=== PATIENT | female | born 2005 | race Caucasian/White ===

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

== ENCOUNTER 2023-01-11 14:01 | Emergency (ER) | payer BC ==
--- NOTE | 2023-01-11 16:08 | ED ---
URI HPI - General Chief Complaint: Upper Respiratory Infection Stated Complaint: fever Time Seen by Provider: 01/11/23 15:47 Source: patient, RN notes reviewed Mode of arrival: ambulatory Limitations: no limitations - History of Present Illness Initial Comments: This is a 17-year-old female who presents to the emergency department for coughing, congestion, and a sore throat starting yesterday. Reports associated body aches and fevers. Denies any known sick contacts. Denies any history of asthma or other respiratory illnesses and she is not experiencing any chest pain or difficulty breathing. Denies any dyspnea, chest pain, palpitations, abdominal pain, nausea, vomiting, diarrhea, back pain, or headaches. MD Complaint: cough, sore throat, nasal congestion Onset/Timin -: days(s) - Related Data Home Medications Medication Instructions Recorded Confirmed Ferrous Sulfate [Iron] 325 mg PO DAILY 06/01/21 06/01/21 Ibuprofen [Motrin Ib] 800 mg PO Q8H PRN 06/01/21 06/01/21 norethindrone-e.estradioL-iron 1 tab PO DAILY 06/01/21 06/01/21 [Junel Fe 1.5 mg-30 Mcg Tablet] Previous Rx's Medication Instructions Recorded Nirmatrelvir/Ritonavir [Paxlovid 1 pack PO BID 5 Days #30 tab 01/11/23 300-100 mg Pack (Eua)] Promethazine/Dextromethorphan 5 ml PO Q4-6H PRN #473 ml 01/11/23 [Promethazine-Dm Syrup] predniSONE 50 mg PO DAILY 5 Days #5 tab 01/11/23 Allergies Allergy/AdvReac Type Severity Reaction Status Date / Time No Known Allergies Allergy Verified 01/11/23 14:16 Review of Systems ROS Statement: Those systems with pertinent positive or pertinent negative responses have been documented in the HPI. ROS Other: All systems not noted in ROS Statement are negative. Past Medical History Past Medical History: No Reported History Additional Past Medical History / Comment(s): anemia, hypoglycemia History of Any Multi-Drug Resistant Organisms: None Reported Past Surgical History: Orthopedic Surgery Additional Past Surgical History / Comment(s): dental work, right arm surgery after fx, rt ankle Past Psychological History: No Psychological Hx Reported Smoking Status: Never smoker Past Alcohol Use History: None Reported Past Drug Use History: None Reported General Exam Limitations: no limitations General appearance: alert, in no apparent distress Head exam: Present: atraumatic, normocephalic, normal inspection Respiratory exam: Present: normal lung sounds bilaterally. Absent: respiratory distress, wheezes, rales, rhonchi, stridor Cardiovascular Exam: Present: regular rate, normal rhythm, normal heart sounds. Absent: systolic murmur, diastolic murmur, rubs, gallop, clicks Neurological exam: Present: alert, oriented X3, CN II-XII intact Psychiatric exam: Present: normal affect, normal mood Skin exam: Present: warm, dry, intact, normal color. Absent: rash Course Vital Signs 01/11/23 01/11/23 14:10 16:15 Temperature 99.6 F 100 F H Pulse Rate 106 H 102 H Respiratory 20 18 Rate Blood Pressure 106/75 102/76 O2 Sat by Pulse 95 96 Oximetry Medical Decision Making - Medical Decision Making This is a 17-year-old female who presents to the emergency department for coughing, congestion, and a sore throat. Was pt. sent in by a medical professional or institution? @ -No Did you speak to anyone other than the patient for history? @ -No Did you review nursing and triage notes? @ -Yes, and I agree, it is accurate with regards to the patient's symptoms. Were old charts reviewed? @ -No Differential Diagnosis? @ -Differential Sore Throat: Strep pharyngitis, herpes zoster, COVID, influenza, GERD, allergic rhinitis, mononucleosis, this is not meant to be an all-inclusive list. EKG interpreted by me (3pts min.)? @ -Not obtained X-rays interpreted by me (1pt min.)? @ -Not obtained CT interpreted by me (1pt min.)? @ -Not obtained U/S interpreted by me (1pt. min.)? @ -Not obtained What testing was considered but not performed? (CT, X-rays, U/S, labs)? Why? @ -None What meds were considered but not given? Why? @ -None Did you discuss the management of the patient with other professionals? @ -No Did you reconcile home meds? @ -No Was smoking cessation discussed for >3mins.? @ -No Was critical care preformed (if so, how long)? @ -No Were there social determinants of health that impacted care today? How? (Homelessness, low income, unemployed, alcoholism, drug addiction, transportation, low edu. Level, literacy, decrease access to med. care, halfway, rehab)? @ -No Was there de-escalation of care discussed even if they declined? (Discuss DNR or withdrawal of care, Hospice)? @ -No What co-morbidities impacted this encounter? (DM, HTN, Smoking, COPD, CAD, Cancer, CVA, Hep., AIDS, mental health diagnosis, sleep apnea, morbid obesity)? @ -None Was patient admitted / discharged? @ -Discharged. Patient tested positive for COVID-19. Discussed the risks and benefits of Paxlovid, and patient wishes to proceed. Prescription for Paxlovid, prednisone, and promethazine DM cough syrup provided with dosing instructions reviewed. Advised ibuprofen and Tylenol as needed for any additional fevers. Recommended getting plenty of rest and continuing with symptomatic management. The patient is also instructed to quarantine for 5 days and practice extra precautions for an additional 5 days, including always wearing a mask around others and avoiding travel. Undiagnosed new problem with uncertain prognosis? @ -None Drug Therapy requiring intensive monitoring for toxicity (Heparin, Nitro, Insulin, Cardizem)? @ -None Were any procedures done? @ -None Diagnosis/symptom? @ -COVID-19 Acute, or Chronic, or Acute on Chronic? @ -Acute Uncomplicated (without systemic symptoms) or Complicated (systemic symptoms)? @ -Uncomplicated Side effects of treatment? @ -None Exacerbation, Progression, or Severe Exacerbation] @ -Not applicable Poses a threat to life or bodily function? @ -No Return precautions reviewed in depth, the patient is instructed to return to the emergency department with any new, worsening, or concerning symptoms. Patient v erbalized understanding. This case was discussed in detail with the attending ED physician, Dr. Toussaint. Presentation, findings, and treatment plan discussed in detail as well. - Lab Data Lab Results 01/11/23 Range/Units 14:17 Influenza Type A (PCR) Not Detected (Not Detectd) Influenza Type B (PCR) Not Detected (Not Detectd) RSV (PCR) Not Detected (Not Detectd) SARS-CoV-2 (PCR) Detected A (Not Detectd) Disposition Clinical Impression: COVID-19 Disposition: HOME SELF-CARE Instructions (If sedation given, give patient instructions): COVID-19 (Coronavirus Disease 2019) (ED), How to Recover from COVID-19 at Home (ED) Additional Instructions: Return to the emergency department with any new, worsening, or concerning symptoms. Take the prednisone as prescribed for 5 days. You can use the promethazine DM cough syrup every 4-6 hours as needed. Take the Paxlovid as prescribed for 5 days. Make sure that you are getting plenty of rest and continuing with symptomatic management. You are instructed to quarantine for 5 days and practice extra precautions for an additional 5 days, including always wearing a mask around others and avoiding travel. Prescriptions: Nirmatrelvir/Ritonavir [Paxlovid 300-100 mg Pack (Eua)] 1 pack PO BID 5 Days #30 tab predniSONE 50 mg PO DAILY 5 Days #5 tab Promethazine/Dextromethorphan [Promethazine-Dm Syrup] 5 ml PO Q4-6H PRN #473 ml PRN Reason: Cough Is patient prescribed a controlled substance at d/c from ED?: No Referrals: Benigno France MD [STAFF PHYSICIAN] - 1-2 days
[2023-01-11 17:04] VITALS: BP 102/76; PULSE 102; RESP 18; TEMP 100
== END 2023-01-11 16:15 | disposition home or self-care (01) ==
LOC: EC 14:01
DX: U07.1 COVID-19 (principal)
CPT/HCPCS: 87636; 99283

== ENCOUNTER 2023-05-06 13:12 | Emergency (ER) | payer BC ==
[2023-05-06] MEDS ORDERED: SODIUM CHLORIDE 0.9% 1,000 ML IV STA (14:03)
[2023-05-06] MEDS ORDERED: METOCLOPRAMIDE 5 MG/ML 2 ML VIAL IVP STA (14:05)
[2023-05-06] MEDS ORDERED: KETOROLAC 15 MG/ML 1 ML VIAL IVP STA (14:05)
[2023-05-06] MEDS ORDERED: diphenhydrAMINE 50 MG/ML 1 ML VIAL IVP STA (14:05)
[2023-05-06] MEDS ORDERED: DEXAMETHASONE SOD PHOSPHATE 10 MG/ML 1 ML VIAL IVP STA (14:05)
--- NOTE | 2023-05-06 14:21 | ED ---
Headache HPI - General Chief Complaint: Headache Stated Complaint: Dizziness Time Seen by Provider: 05/06/23 13:31 Source: patient, RN notes reviewed Mode of arrival: ambulatory Limitations: no limitations - History of Present Illness Initial Comments: This is a 18-year-old female who presents to the emergency department for a headache and dizziness. States that she had to leave school early today, because she felt like she was going to pass out. She does continue to have a headache and dizziness. She has had a migraine since yesterday that she is u nable to get rid of. She would not describe this as the worst headache of her life, states that she is waiting to see a neurologist soon for further evaluation of these migraines. Also reports minor shortness of breath. Denies any chest pain, nausea, or vomiting. MD Complaint: headache, "migraine" - Related Data Home Medications Medication Instructions Recorded Confirmed Ferrous Sulfate [Iron] 325 mg PO DAILY 06/01/21 06/01/21 Ibuprofen [Motrin Ib] 800 mg PO Q8H PRN 06/01/21 06/01/21 norethindrone-e.estradioL-iron 1 tab PO DAILY 06/01/21 06/01/21 [Junel Fe 1.5 mg-30 Mcg Tablet] Previous Rx's Medication Instructions Recorded Nirmatrelvir/Ritonavir [Paxlovid 1 pack PO BID 5 Days #30 tab 01/11/23 300-100 mg Pack (Eua)] Promethazine/Dextromethorphan 5 ml PO Q4-6H PRN #473 ml 01/11/23 [Promethazine-Dm Syrup] predniSONE 50 mg PO DAILY 5 Days #5 tab 01/11/23 Ketorolac [Toradol] 10 mg PO Q6HR PRN #15 tab 05/06/23 Nirmatrelvir/Ritonavir [Paxlovid 1 pack PO BID 5 Days #30 tab 05/06/23 300-100 mg Pack (Eua)] Ondansetron Odt [Zofran Odt] 4 mg PO Q8HR PRN #15 tab 05/06/23 Allergies Allergy/AdvReac Type Severity Reaction Status Date / Time No Known Allergies Allergy Verified 01/11/23 14:16 Review of Systems ROS Statement: Those systems with pertinent positive or pertinent negative responses have been documented in the HPI. ROS Other: All systems not noted in ROS Statement are negative. Past Medical History Past Medical History: No Reported History Additional Past Medical History / Comment(s): anemia, hypoglycemia History of Any Multi-Drug Resistant Organisms: None Reported Past Surgical History: Orthopedic Surgery Additional Past Surgical History / Comment(s): dental work, right arm surgery after fx, rt ankle Past Psychological History: No Psychological Hx Reported Smoking Status: Never smoker Past Alcohol Use History: None Reported Past Drug Use History: None Reported General Exam Limitations: no limitations General appearance: alert, in no apparent distress Head exam: Present: atraumatic, normocephalic, normal inspection Eye exam: Present: normal appearance, PERRL, EOMI. Absent: scleral icterus, conjunctival injection, periorbital swelling Respiratory exam: Present: normal lung sounds bilaterally. Absent: respiratory distress, wheezes, rales, rhonchi, stridor Cardiovascular Exam: Present: regular rate, normal rhythm, normal heart sounds. Absent: systolic murmur, diastolic murmur, rubs, gallop, clicks Neurological exam: Present: alert, oriented X3, CN II-XII intact Psychiatric exam: Present: normal affect, normal mood Skin exam: Present: warm, dry, intact, normal color. Absent: rash Course Vital Signs 05/06/23 05/06/23 13:22 16:14 Temperature 98 F 98.0 F Pulse Rate 99 107 H Respiratory 16 18 Rate Blood Pressure 135/87 127/84 O2 Sat by Pulse 99 100 Oximetry Medical Decision Making - Medical Decision Making This is a 18-year-old female who presents to the emergency department for headaches and dizziness. Was pt. sent in by a medical professional or institution? @ -No Did you speak to anyone other than the patient for history? @ -No Did you review nursing and triage notes? @ -Yes, and I agree, it is accurate with regards to the patient's symptoms. Were old charts reviewed? @ -No Differential Diagnosis? @ -Differential Headache: Migraine, tension, cluster, carbon monoxide, central venous thrombosis, pension karma temporal arteritis, acute closure glaucoma, intercranial hemorrhage, mastoiditis, sinusitis, head injury, this is not meant to be an all-inclusive list. EKG interpreted by me (3pts min.)? @ -Not obtained X-rays interpreted by me (1pt min.)? @ -Chest x-ray obtained, my interpretation identifies no localized consolidations or infiltrates. CT interpreted by me (1pt min.)? @ -Not obtained U/S interpreted by me (1pt. min.)? @ -Not obtained What testing was considered but not performed? (CT, X-rays, U/S, labs)? Why? @ -None What meds were considered but not given? Why? @ -None Did you discuss the management of the patient with other professionals? @ -No Did you reconcile home meds? @ -No Was smoking cessation discussed for >3mins.? @ -No Was critical care preformed (if so, how long)? @ -No Were there social determinants of health that impacted care today? How? (Homelessness, low income, unemployed, alcoholism, drug addiction, transportation, low edu. Level, literacy, decrease access to med. care, senior care, rehab)? @ -No Was there de-escalation of care discussed even if they declined? (Discuss DNR or withdrawal of care, Hospice)? @ -No What co-morbidities impacted this encounter? (DM, HTN, Smoking, COPD, CAD, Cancer, CVA, Hep., AIDS, mental health diagnosis, sleep apnea, morbid obesity)? @ -Migraines Was patient admitted / discharged? @ -Discharged. Lab work obtained revealing leukocytosis. Patient positive for COVID-19. Lab work was otherwise unremarkable. Chest x-ray obtained demonstrating no acute process. Patient treated with IV fluids and a migraine cocktail containing Toradol, Decadron, Reglan, and Benadryl with improvement in symptoms. Discussed the risks and benefits of antiviral treatment with the patient, including the potential for rebound symptoms, and the patient requested to proceed. Rx for Paxlovid, Toradol, and Zofran provided with dosing instructions reviewed. She is also advised to quarantine for 5 days and practice extra precautions for an additional 5 days, including always wearing a mask around others and avoiding travel. Patient otherwise discharged home in stable condition. Undiagnosed new problem with uncertain prognosis? @ -None Drug Therapy requiring intensive monitoring for toxicity (Heparin, Nitro, Insulin, Cardizem)? @ -None Were any procedures done? @ -None Diagnosis/symptom? @ -Headache, COVID-19 Acute, or Chronic, or Acute on Chronic? @ -Acute Uncomplicated (without systemic symptoms) or Complicated (systemic symptoms)? @ -Uncomplicated Side effects of treatment? @ -None Exacerbation, Progression, or Severe Exacerbation] @ -Not applicable Poses a threat to life or bodily function? @ -No Return precautions reviewed in depth, the patient is instructed to return to the emergency department with any new, worsening, or concerning symptoms. Patient verbalized understanding. This case was discussed in detail with the attending ED physician, Dr. Guy. Presentation, findings, and treatment plan discussed in detail as well. - Lab Data Result diagrams: 05/06/23 14:25 05/06/23 14:25 Lab Results 05/06/23 05/06/23 05/06/23 Range/Units 13:38 14:25 14:25 WBC 12.8 H (4.0-11.0) k/uL RBC 4.90 (3.80-5.40) m/uL Hgb 13.1 (11.4-16.0) gm/dL Hct 40.0 (34.0-46.0) % MCV 81.5 (80.0-100.0) fL MCH 26.6 (25.0-35.0) pg MCHC 32.7 (31.0-37.0) g/dL RDW 12.3 (11.5-15.5) % Plt Count 374 (150-450) k/uL MPV 7.4 Neutrophils % 73 % Lymphocytes % 21 % Monocytes % 3 % Eosinophils % 1 % Basophils % 1 % Neutrophils # 9.3 H (1.3-7.7) k/uL Lymphocytes # 2.7 (1.0-4.8) k/uL Monocytes # 0.4 (0-1.0) k/uL Eosinophils # 0.2 (0-0.7) k/uL Basophils # 0.1 (0-0.2) k/uL Sodium 138 (137-145) mmol/L Potassium 3.7 (3.5-5.1) mmol/L Chloride 105 (98-107) mmol/L Carbon Dioxide 20 L (22-30) mmol/L Anion Gap 13 mmol/L BUN 9 (7-17) mg/dL Creatinine 0.55 (0.52-1.04) mg/dL Est GFR (CKD-EPI)AfAm >90 (>60 ml/min/1.73 sqM) Est GFR (CKD-EPI)NonAf >90 (>60 ml/min/1.73 sqM) Glucose 77 (74-99) mg/dL Calcium 9.3 (8.4-10.2) mg/dL Total Bilirubin 0.4 (0.2-1.3) mg/dL AST 22 (14-36) U/L ALT 23 (4-34) U/L Alkaline Phosphatase 86 (38-126) U/L Troponin I (0.000-0.034) ng/mL Total Protein 7.8 (6.3-8.2) g/dL Albumin 4.2 (3.5-5.0) g/dL TSH 2.590 (0.465-4.680) mIU/L Influenza Type A (PCR) Not Detected (Not Detectd) Influenza Type B (PCR) Not Detected (Not Detectd) RSV (PCR) Not Detected (Not Detectd) SARS-CoV-2 (PCR) Detected A (Not Detectd) 05/06/23 Range/Units 14:25 WBC (4.0-11.0) k/uL RBC (3.80-5.40) m/uL Hgb (11.4-16.0) gm/dL Hct (34.0-46.0) % MCV (80.0-100.0) fL MCH (25.0-35.0) pg MCHC (31.0-37.0) g/dL RDW (11.5-15.5) % Plt Count (150-450) k/uL MPV Neutrophils % % Lymphocytes % % Monocytes % % Eosinophils % % Basophils % % Neutrophils # (1.3-7.7) k/uL Lymphocytes # (1.0-4.8) k/uL Monocytes # (0-1.0) k/uL Eosinophils # (0-0.7) k/uL Basophils # (0-0.2) k/uL Sodium (137-145) mmol/L Potassium (3.5-5.1) mmol/L Chloride (98-107) mmol/L Carbon Dioxide (22-30) mmol/L Anion Gap mmol/L BUN (7-17) mg/dL Creatinine (0.52-1.04) mg/dL Est GFR (CKD-EPI)AfAm (>60 ml/min/1.73 sqM) Est GFR (CKD-EPI)NonAf (>60 ml/min/1.73 sqM) Glucose (74-99) mg/dL Calcium (8.4-10.2) mg/dL Total Bilirubin (0.2-1.3) mg/dL AST (14-36) U/L ALT (4-34) U/L Alkaline Phosphatase (38-126) U/L Troponin I <0.012 (0.000-0.034) ng/mL Total Protein (6.3-8.2) g/dL Albumin (3.5-5.0) g/dL TSH (0.465-4.680) mIU/L Influenza Type A (PCR) (Not Detectd) Influenza Type B (PCR) (Not Detectd) RSV (PCR) (Not Detectd) SARS-CoV-2 (PCR) (Not Detectd) - Radiology Data Radiology results: report reviewed, image reviewed Disposition Clinical Impression: Migraine headache, COVID-19 Disposition: HOME SELF-CARE Instructions (If sedation given, give patient instructions): Coronavirus Disease 2019 (COVID-19), Acute Headache (ED), How to Recover from COVID-19 at Home (ED) Additional Instructions: Return to the emergency department with any new, worsening, or concerning symptoms. Take the Toradol with Tylenol as needed for pain relief. If you choose to take the Toradol, do not take any other anti-inflammatories such as ibuprofen, take one or the other. Take the Paxlovid as prescribed for 5 days. You can take the Zofran up to every 8 hours as needed for nausea and vomiting. Follow up with your primary care provider in 1-2 days. Prescriptions: Nirmatrelvir/Ritonavir [Paxlovid 300-100 mg Pack (Eua)] 1 pack PO BID 5 Days #30 tab Ketorolac [Toradol] 10 mg PO Q6HR PRN #15 tab PRN Reason: Pain Ondansetron Odt [Zofran Odt] 4 mg PO Q8HR PRN #15 tab PRN Reason: Nausea And Vomiting Is patient prescribed a controlled substance at d/c from ED?: No Referrals: Terry France MD [Primary Care Provider] - 1-2 days Time of Disposition: 15:58
--- NOTE | 2023-05-06 14:29 | XR ---
EXAMINATION TYPE: XR chest 2V DATE OF EXAM: 05/06/2023 COMPARISON: None HISTORY: 18-year-old female dizziness TECHNIQUE: PA and lateral views FINDINGS: The cardiomediastinal silhouette, aorta, and pulmonary vasculature are within normal limits. Lungs an d pleural spaces are clear. Accentuated lower thoracic kyphosis. IMPRESSION: No acute cardiopulmonary process. Accentuated lower thoracic kyphosis.
[2023-05-06 14:58] LABS: Basophils # (A) 0.1 k/uL (0-0.2); Basophils % (A) 1 %; Eosinophils # (A) 0.2 k/uL (0-0.7); Eosinophils % (A) 1 %; HGB 13.1 gm/dL (11.4-16.0); Lymphocytes # (A) 2.7 k/uL (1.0-4.8); Lymphocytes % (A) 21 %; MCH 26.6 pg (25.0-35.0); MCHC 32.7 g/dL (31.0-37.0); MCV 81.5 fL (80.0-100.0); Mean Platelet Volume 7.4; Monocytes # (A) 0.4 k/uL (0-1.0); Monocytes % (A) 3 %; Neutrophils # (A) 9.3 k/uL (1.3-7.7); Neutrophils % (A) 73 %; Platelet Count 374 k/uL (150-450); RDW 12.3 % (11.5-15.5); WBC 12.8 k/uL (4.0-11.0)
[2023-05-06 15:14] LABS: ALT 23 U/L (4-34); AST 22 U/L (14-36); African American GFR (CKD) >90 (>60 ml/min/1.73 sqM); Albumin 4.2 g/dL (3.5-5.0); Alkaline Phosphatase 86 U/L (38-126); Anion Gap 13 mmol/L; Blood Urea Nitrogen 9 mg/dL (7-17); Calcium 9.3 mg/dL (8.4-10.2); Carbon Dioxide 20 mmol/L (22-30); Chloride 105 mmol/L (98-107); Glucose 77 mg/dL (74-99); Non-African American GFR(CKD) >90 (>60 ml/min/1.73 sqM); Potassium 3.7 mmol/L (3.5-5.1); Sodium 138 mmol/L (137-145); Total Bilirubin 0.4 mg/dL (0.2-1.3); Total Protein 7.8 g/dL (6.3-8.2)
[2023-05-06 16:17] VITALS: BP 127/84; PULSE 107; RESP 18; TEMP 98
== END 2023-05-06 16:14 | disposition home or self-care (01) ==
LOC: EC 13:12
DX: U07.1 COVID-19 (principal); G43.909 Migraine, unspecified, not intractable, without status migrainosus
CPT/HCPCS: 36415; 80053; 84443; 84484; 85025; 87636; 71046; 99284; 96374; 96375 ×3; 96361; J1200; J1100; J2765; J1885

== ENCOUNTER 2023-06-18 15:21 | Emergency (ER) | payer BC ==
--- NOTE | 2023-06-18 16:07 | ED ---
Abdominal Pain HPI - General Source: patient Mode of arrival: ambulatory Limitations: no limitations <Isabel Peter - Last Filed: 06/18/23 16:06> <Shagufta Jacob - Last Filed: 06/18/23 19:33> - General Chief Complaint: Abdominal Pain Stated Complaint: Vaginal Bleeding, unknown if Time Seen by Provider: 06/18/23 16:06 - History of Present Illness Initial Comments: 18-year-old female presenting with chief complaint of lower abdominal pain and bloody stools for the last month. (Isabel Peter) - Related Data Home Medications Medication Instructions Recorded Confirmed Ferrous Sulfate [Iron] 325 mg PO DAILY 06/01/21 06/01/21 Ibuprofen [Motrin Ib] 800 mg PO Q8H PRN 06/01/21 06/01/21 norethindrone-e.estradioL-iron 1 tab PO DAILY 06/01/21 06/01/21 [Junel Fe 1.5 mg-30 Mcg Tablet] Previous Rx's Medication Instructions Recorded Nirmatrelvir/Ritonavir [Paxlovid 1 pack PO BID 5 Days #30 tab 01/11/23 300-100 mg Pack (Eua)] Promethazine/Dextromethorphan 5 ml PO Q4-6H PRN #473 ml 01/11/23 [Promethazine-Dm Syrup] predniSONE 50 mg PO DAILY 5 Days #5 tab 01/11/23 Ketorolac [Toradol] 10 mg PO Q6HR PRN #15 tab 05/06/23 Nirmatrelvir/Ritonavir [Paxlovid 1 pack PO BID 5 Days #30 tab 05/06/23 300-100 mg Pack (Eua)] Ondansetron Odt [Zofran Odt] 4 mg PO Q8HR PRN #15 tab 05/06/23 Allergies Allergy/AdvReac Type Severity Reaction Status Date / Time No Known Allergies Allergy Verified 06/18/23 16:04 Review of Systems ROS Other: All systems not noted in ROS Statement are negative. <Isabel Peter - Last Filed: 06/18/23 16:06> ROS Other: All systems not noted in ROS Statement are negative. <Shagufta Jacob - Last Filed: 06/18/23 19:33> ROS Statement: Those systems with pertinent positive or pertinent negative responses have been documented in the HPI. Past Medical History Past Medical History: No Reported History Additional Past Medical History / Comment(s): anemia, hypoglycemia History of Any Multi-Drug Resistant Organisms: None Reported Past Surgical History: Orthopedic Surgery Additional Past Surgical History / Comment(s): dental work, right arm surgery after fx, rt ankle Past Psychological History: No Psychological Hx Reported Smoking Status: Never smoker Past Alcohol Use History: None Reported Past Drug Use History: Marijuana <Isabel Peter - Last Filed: 06/18/23 16:06> General Exam Limitations: no limitations <Isabel Peter - Last Filed: 06/18/23 16:06> - General Exam Comments Initial Comments: Visual Physical Exam Vital signs reviewed General: Well-appearing, nontoxic, no acute distress. Head: Normocephalic, atraumatic Eyes: PERRLA, EOMI ENT: Airway patent Chest: Nonlabored breathing Skin: No visual rash, normal skin tone Neuro: Alert and oriented 3 Musculoskeletal: No gross abnormalities (Isabel ePter) Course Vital Signs 06/18/23 16:01 Temperature 99 F Pulse Rate 99 Respiratory 18 Rate Blood Pressure 153/83 O2 Sat by Pulse 98 Oximetry Medical Decision Making <Isabel Peter - Last Filed: 06/18/23 16:06> - Lab Data Result diagrams: 06/18/23 16:16 06/18/23 16:16 <Shagufta Jacob - Last Filed: 06/18/23 19:33> - Medical Decision Making I performed the quick note portion of this visit, electronically signed Isabel Peter PA-C (Isabel Peter) - Lab Data Lab Results 06/18/23 06/18/23 06/18/23 Range/Units 16:16 16:16 16:16 WBC 12.3 H (4.0-11.0) k/uL RBC 4.87 (3.80-5.40) m/uL Hgb 13.0 (11.4-16.0) gm/dL Hct 39.5 (34.0-46.0) % MCV 81.0 (80.0-100.0) fL MCH 26.6 (25.0-35.0) pg MCHC 32.8 (31.0-37.0) g/dL RDW 12.7 (11.5-15.5) % Plt Count 373 (150-450) k/uL MPV 7.6 Neutrophils % 68 % Lymphocytes % 24 % Monocytes % 4 % Eosinophils % 1 % Basophils % 1 % Neutrophils # 8.4 H (1.3-7.7) k/uL Lymphocytes # 3.0 (1.0-4.8) k/uL Monocytes # 0.5 (0-1.0) k/uL Eosinophils # 0.2 (0-0.7) k/uL Basophils # 0.1 (0-0.2) k/uL Sodium (137-145) mmol/L Potassium (3.5-5.1) mmol/L Chloride (98-107) mmol/L Carbon Dioxide (22-30) mmol/L Anion Gap mmol/L BUN (7-17) mg/dL Creatinine (0.52-1.04) mg/dL Est GFR (CKD-EPI)AfAm (>60 ml/min/1.73 sqM) Est GFR (CKD-EPI)NonAf (>60 ml/min/1.73 sqM) Glucose (74-99) mg/dL Plasma Lactic Acid Rafael (0.7-2.0) mmol/L Calcium (8.4-10.2) mg/dL Total Bilirubin (0.2-1.3) mg/dL AST (14-36) U/L ALT (4-34) U/L Alkaline Phosphatase (38-126) U/L Total Protein (6.3-8.2) g/dL Albumin (3.5-5.0) g/dL Amylase (30-110) U/L Lipase (23-300) U/L Urine Color Yellow Urine Appearance Cloudy H (Clear) Urine pH 5.5 (5.0-8.0) Ur Specific Delta 1.024 (1.001-1.035) Urine Protein Trace H (Negative) Urine Glucose (UA) Negative (Negative) Urine Ketones Negative (Negative) Urine Blood Negative (Negative) Urine Nitrite Negative (Negative) Urine Bilirubin Negative (Negative) Urine Urobilinogen <2.0 (<2.0) mg/dL Ur Leukocyte Esterase Trace H (Negative) Urine RBC 3 (0-5) /hpf Urine WBC 6 H (0-5) /hpf Ur Squamous Epith Cells 5 H (0-4) /hpf Urine Bacteria Rare H (None) /hpf Urine Mucus Few H (None) /hpf Urine HCG, Qual Not Detected (Not Detectd) 06/18/23 06/18/23 Range/Units 16:16 16:16 WBC (4.0-11.0) k/uL RBC (3.80-5.40) m/uL Hgb (11.4-16.0) gm/dL Hct (34.0-46.0) % MCV (80.0-100.0) fL MCH (25.0-35.0) pg MCHC (31.0-37.0) g/dL RDW (11.5-15.5) % Plt Count (150-450) k/uL MPV Neutrophils % % Lymphocytes % % Monocytes % % Eosinophils % % Basophils % % Neutrophils # (1.3-7.7) k/uL Lymphocytes # (1.0-4.8) k/uL Monocytes # (0-1.0) k/uL Eosinophils # (0-0.7) k/uL Basophils # (0-0.2) k/uL Sodium 139 (137-145) mmol/L Potassium 4.0 (3.5-5.1) mmol/L Chloride 108 H (98-107) mmol/L Carbon Dioxide 22 (22-30) mmol/L Anion Gap 9 mmol/L BUN 11 (7-17) mg/dL Creatinine 0.55 (0.52-1.04) mg/dL Est GFR (CKD-EPI)AfAm >90 (>60 ml/min/1.73 sqM) Est GFR (CKD-EPI)NonAf >90 (>60 ml/min/1.73 sqM) Glucose 83 (74-99) mg/dL Plasma Lactic Acid Rafael 1.1 (0.7-2.0) mmol/L Calcium 9.6 (8.4-10.2) mg/dL Total Bilirubin 0.5 (0.2-1.3) mg/dL AST 26 (14-36) U/L ALT 23 (4-34) U/L Alkaline Phosphatase 77 (38-126) U/L Total Protein 7.5 (6.3-8.2) g/dL Albumin 4.3 (3.5-5.0) g/dL Amylase 59 (30-110) U/L Lipase 83 (23-300) U/L Urine Color Urine Appearance (Clear) Urine pH (5.0-8.0) Ur Specific Delta (1.001-1.035) Urine Protein (Negative) Urine Glucose (UA) (Negative) Urine Ketones (Negative) Urine Blood (Negative) Urine Nitrite (Negative) Urine Bilirubin (Negative) Urine Urobilinogen (<2.0) mg/dL Ur Leukocyte Esterase (Negative) Urine RBC (0-5) /hpf Urine WBC (0-5) /hpf Ur Squamous Epith Cells (0-4) /hpf Urine Bacteria (None) /hpf Urine Mucus (None) /hpf Urine HCG, Qual (Not Detectd) Disposition <Isabel Peter - Last Filed: 06/18/23 16:06> Is patient prescribed a controlled substance at d/c from ED?: No Time of Disposition: 19:32 <Shagufta Jacob - Last Filed: 06/18/23 19:33> Clinical Impression: Hematochezia Disposition: HOME SELF-CARE Condition: Stable Instructions (If sedation given, give patient instructions): Rectal Bleeding (ED) Additional Instructions: Please follow-up with the GI doctor at your scheduled appointment. Monitor the amount of bleeding that you are having. If you have any new or worsening symptoms, return to the emergency department Referrals: Terry France MD [Primary Care Provider] - 1-2 days Veronika Montes MD [STAFF PHYSICIAN] - 1-2 days
[2023-06-18 16:13] VITALS: BP 153/83; PULSE 99; RESP 18; TEMP 99
[2023-06-18 16:55] LABS: Appearance,Urine Cloudy (Clear); Bacteria,Urine Rare /hpf; Bilirubin,Urine Negative (Negative); Blood,Urine Negative (Negative); Color,Urine Yellow; Glucose,Urine (UA) Negative (Negative); Ketones,Urine Negative (Negative); Leukocyte Esterase,Urine Trace (Negative); Mucus,Urine Few /hpf; Nitrite,Urine Negative (Negative); PH, Urine 5.5 (5.0-8.0); Protein,Urine Trace (Negative); RBC,Urine 3 /hpf (0-5); Specific Gravity,Urine 1.024 (1.001-1.035); Squamous Epithelial Cell,Urine 5 /hpf (0-4); Urobilinogen,Urine <2.0 mg/dL (<2.0); WBC,Urine 6 /hpf (0-5)
[2023-06-18 17:17] LABS: Basophils # (A) 0.1 k/uL (0-0.2); Basophils % (A) 1 %; Eosinophils # (A) 0.2 k/uL (0-0.7); Eosinophils % (A) 1 %; HCT 39.5 % (34.0-46.0); Lymphocytes % (A) 24 %; MCH 26.6 pg (25.0-35.0); MCHC 32.8 g/dL (31.0-37.0); Mean Platelet Volume 7.6; Monocytes # (A) 0.5 k/uL (0-1.0); Monocytes % (A) 4 %; Neutrophils # (A) 8.4 k/uL (1.3-7.7); Neutrophils % (A) 68 %; Platelet Count 373 k/uL (150-450); RBC 4.87 m/uL (3.80-5.40); RDW 12.7 % (11.5-15.5); WBC 12.3 k/uL (4.0-11.0)
[2023-06-18 19:00] LABS: ALT 23 U/L (4-34); AST 26 U/L (14-36); African American GFR (CKD) >90 (>60 ml/min/1.73 sqM); Albumin 4.3 g/dL (3.5-5.0); Alkaline Phosphatase 77 U/L (38-126); Amylase 59 U/L (30-110); Anion Gap 9 mmol/L; Blood Urea Nitrogen 11 mg/dL (7-17); Calcium 9.6 mg/dL (8.4-10.2); Carbon Dioxide 22 mmol/L (22-30); Chloride 108 mmol/L (98-107); Glucose 83 mg/dL (74-99); Lipase 83 U/L (23-300); Non-African American GFR(CKD) >90 (>60 ml/min/1.73 sqM); Sodium 139 mmol/L (137-145); Total Bilirubin 0.5 mg/dL (0.2-1.3); Total Protein 7.5 g/dL (6.3-8.2)
== END 2023-06-18 19:55 | disposition home or self-care (01) ==
LOC: EC 15:21
DX: K92.1 Melena (principal); F12.90 Cannabis use, unspecified, uncomplicated
CPT/HCPCS: 36415; 80053; 81001; 81025; 82150; 83605; 83690; 85025; 99284

== ENCOUNTER 2024-03-11 08:13 | Emergency (ER) | payer BC ==
--- NOTE | 2024-03-11 08:36 | ED ---
Arrhythmia/Palpitations HPI - General Chief Complaint: Arrhythmia/Palpitations Stated Complaint: high heart rate Time Seen by Provider: 03/11/24 08:25 Source: patient, RN notes reviewed Mode of arrival: ambulatory Limitations: no limitations - History of Present Illness Initial Comments: This is a 18-year-old female who presents to the emergency department for palpitations. States that since yesterday she has had intermittent bouts of palpitations and feels like her heart is fluttering out of her chest. She has occasional chest discomfort with this as well as some shortness of breath. Unsure how long these episodes last or if they occur in any particular pattern. States that this has happened both at rest and with activity. She has had issue s with palpitations in the past, but states that they do not usually last this long. Reports a family history of A-fib which she is concerned about. MD Complaint: palpitations - Related Data Home Medications Medication Instructions Recorded Confirmed Escitalopram [Lexapro] 10 mg PO DAILY 03/11/24 03/11/24 nadoloL [Corgard] 20 mg PO DAILY 03/11/24 03/11/24 norethindrone-e.estradioL-iron 1 tab PO DAILY 03/11/24 03/11/24 [Aurovela Fe 1-20 Tablet] Allergies Allergy/AdvReac Type Severity Reaction Status Date / Time No Known Allergies Allergy Verified 03/11/24 10:39 Review of Systems ROS Statement: Those systems with pertinent positive or pertinent negative responses have been documented in the HPI. ROS Other: All systems not noted in ROS Statement are negative. Past Medical History Past Medical History: No Reported History Additional Past Medical History / Comment(s): anemia, hypoglycemia History of Any Multi-Drug Resistant Organisms: None Reported Past Surgical History: Orthopedic Surgery Additional Past Surgical History / Comment(s): dental work, right arm surgery after fx, rt ankle Past Psychological History: No Psychological Hx Reported Smoking Status: Never smoker Past Alcohol Use History: Rare Past Drug Use History: Marijuana General Exam Limitations: no limitations General appearance: alert, in no apparent distress Head exam: Present: atraumatic, normocephalic, normal inspection Respiratory exam: Present: normal lung sounds bilaterally. Absent: respiratory distress, wheezes, rales, rhonchi, stridor Cardiovascular Exam: Present: regular rate, normal rhythm, normal heart sounds. Absent: systolic murmur, diastolic murmur, rubs, gallop, clicks Neurological exam: Present: alert, oriented X3, CN II-XII intact Psychiatric exam: Present: normal affect, normal mood Skin exam: Present: warm, dry, intact, normal color. Absent: rash Course Vital Signs 03/11/24 03/11/24 03/11/24 08:14 08:59 10:45 Temperature 98.2 F 98.1 F Pulse Rate 90 87 Pulse Rate [ 90 Apical] Respiratory 20 18 Rate Blood Pressure 134/85 131/79 O2 Sat by Pulse 100 100 Oximetry Medical Decision Making - Medical Decision Making This is a 18 year old female who presents to the emergency department for palpitations. Was pt. sent in by a medical professional or institution? @ -No Did you speak to anyone other than the patient for history? @ -No Did you review nursing and triage notes? @ -Yes, and I agree, it is accurate with regards to the patient's symptoms. Were old charts reviewed? @ -No Differential Diagnosis? @ -Differential Dyspnea: Coronary syndrome, arrhythmia, tamponade, asthma, COPD, pulmonary embolism, pneumonia, pneumothorax, pulmonary effusion, anaphylaxis, diabetic ketoacidosis, flailed chest, pulmonary contusion, diaphragmatic rupture, anemia, neuromuscular, this is not meant to be an all-inclusive list. EKG interpreted by me (3pts min.)? @ -EKG interpreted by me demonstrating the following: Sinus rhythm. Ventricular rate 81 bpm, RI interval 150 ms, QRS duration 88 ms, QTc 390 ms. X-rays interpreted by me (1pt min.)? @ -Chest x-ray obtained, my interpretation identifies no localized consolidations or infiltrates. CT interpreted by me (1pt min.)? @ -CTA of the chest obtained. My interpretation identifies no evidence of a pulmonary embolus. U/S interpreted by me (1pt. min.)? @ -Not obtained What testing was considered but not performed? (CT, X-rays, U/S, labs)? Why? @ -None What meds were considered but not given? Why? @ -None Did you discuss the management of the patient with other professionals? @ -No Did you reconcile home meds? @ -No Was smoking cessation discussed for >3mins.? @ -No Was critical care preformed (if so, how long)? @ -No Were there social determinants of health that impacted care today? How? (Homelessness, low income, unemployed, alcoholism, drug addiction, tr ansportation, low edu. Level, literacy, decrease access to med. care, usp, rehab)? @ -No Was there de-escalation of care discussed even if they declined? (Discuss DNR or withdrawal of care, Hospice)? @ -No What co-morbidities impacted this encounter? (DM, HTN, Smoking, COPD, CAD, Cancer, CVA, Hep., AIDS, mental health diagnosis, sleep apnea, morbid obesity)? @ -None Was patient admitted / discharged? @ -Discharged. Lab work demonstrates a borderline D-dimer of 0.54 and was otherwise unremarkable. Urinalysis and UDS negative. Chest x-ray reveals no acute process. CTA of the chest reveals no evidence of a pulmonary embolus or other acute process. She was given a liter bolus of IV fluids in the emergency department. The cause of her symptoms is not entirely clear at this point. Advised follow-up with her PCP and possibly cardiology as she may need a Holter monitor or further testing. Patient discharged home in stable condition. Case discussed with ED attending Dr. Ordonez. Return precautions reviewed in depth, the patient is instructed to return to the emergency department with any new, worsening, or concerning symptoms. Patient verbalized understanding. Undiagnosed new problem with uncertain prognosis? @ -None Drug Therapy requiring intensive monitoring for toxicity (Heparin, Nitro, Insulin, Cardizem)? @ -None Were any procedures done? @ -None Diagnosis/symptom? @ -Palpitations Acute, or Chronic, or Acute on Chronic? @ -Acute Uncomplicated (without systemic symptoms) or Complicated (systemic symptoms)? @ -Uncomplicated Side effects of treatment? @ -None Exacerbation, Progression, or Severe Exacerbation] @ -Not applicable Poses a threat to life or bodily function? @ -Unlikely - Lab Data Result diagrams: 03/11/24 08:47 03/11/24 08:47 Lab Results 03/11/24 03/11/24 03/11/24 Range/Units 08:47 08:47 08:47 WBC 9.7 (4.0-11.0) k/uL RBC 4.96 (3.80-5.40) m/uL Hgb 13.2 (11.4-16.0) gm/dL Hct 40.5 (34.0-46.0) % MCV 81.6 (80.0-100.0) fL MCH 26.5 (25.0-35.0) pg MCHC 32.5 (31.0-37.0) g/dL RDW 12.9 (11.5-15.5) % Plt Count 359 (150-450) k/uL MPV 7.2 Neutrophils % 72 % Lymphocytes % 21 % Monocytes % 4 % Eosinophils % 2 % Basophils % 1 % Neutrophils # 6.9 (1.3-7.7) k/uL Lymphocytes # 2.0 (1.0-4.8) k/uL Monocytes # 0.3 (0-1.0) k/uL Eosinophils # 0.2 (0-0.7) k/uL Basophils # 0.1 (0-0.2) k/uL PT 10.0 (10.0-12.5) sec INR 0.9 (<1.2) APTT 27.8 (22.0-30.0) sec D-Dimer 0.54 (<0.60) mg/L FEU Sodium (137-145) mmol/L Potassium (3.5-5.1) mmol/L Chloride (98-107) mmol/L Carbon Dioxide (22-30) mmol/L Anion Gap mmol/L BUN (7-17) mg/dL Creatinine (0.52-1.04) mg/dL Est GFR (CKD-EPI)AfAm (>60 ml/min/1.73 sqM) Est GFR (CKD-EPI)NonAf (>60 ml/min/1.73 sqM) Glucose (74-99) mg/dL Calcium (8.4-10.2) mg/dL Magnesium (1.6-2.3) mg/dL Total Bilirubin (0.2-1.3) mg/dL AST (14-36) U/L ALT (4-34) U/L Alkaline Phosphatase (38-126) U/L Troponin I (0.000-0.034) ng/mL Total Protein (6.3-8.2) g/dL Albumin (3.5-5.0) g/dL Urine Color Light Yellow Urine Appearance Clear (Clear) Urine pH 5.5 (5.0-8.0) Ur Specific [place] 1.021 (1.001-1.035) Urine Protein Negative (Negative) Urine Glucose (UA) Negative (Negative) Urine Ketones Negative (Negative) Urine Blood Negative (Negative) Urine Nitrite Negative (Negative) Urine Bilirubin Negative (Negative) Urine Urobilinogen <2.0 (<2.0) mg/dL Ur Leukocyte Esterase Negative (Negative) Urine HCG, Qual (Not Detectd) Urine Opiates Screen Not Detected (NotDetected) Ur Oxycodone Screen Not Detected (NotDetected) Urine Methadone Screen Not Detected (NotDetected) Ur Barbiturates Screen Not Detected (NotDetected) U Tricyclic Antidepress Not Detected (NotDetected) Ur Phencyclidine Scrn Not Detected (NotDetected) Ur Amphetamines Screen Not Detected (NotDetected) U Methamphetamines Scrn Not Detected (NotDetected) U Benzodiazepines Scrn Not Detected (NotDetected) Urine Cocaine Screen Not Detected (NotDetected) U Marijuana (THC) Screen Not Detected (NotDetected) 03/11/24 03/11/24 03/11/24 Range/Units 08:47 08:47 08:47 WBC (4.0-11.0) k/uL RBC (3.80-5.40) m/uL Hgb (11.4-16.0) gm/dL Hct (34.0-46.0) % MCV (80.0-100.0) fL MCH (25.0-35.0) pg MCHC (31.0-37.0) g/dL RDW (11.5-15.5) % Plt Count (150-450) k/uL MPV Neutrophils % % Lymphocytes % % Monocytes % % Eosinophils % % Basophils % % Neutrophils # (1.3-7.7) k/uL Lymphocytes # (1.0-4.8) k/uL Monocytes # (0-1.0) k/uL Eosinophils # (0-0.7) k/uL Basophils # (0-0.2) k/uL PT (10.0-12.5) sec INR (<1.2) APTT (22.0-30.0) sec D-Dimer (<0.60) mg/L FEU Sodium 137 (137-145) mmol/L Potassium 4.3 (3.5-5.1) mmol/L Chloride 109 H (98-107) mmol/L Carbon Dioxide 20 L (22-30) mmol/L Anion Gap 8 mmol/L BUN 10 (7-17) mg/dL Creatinine 0.56 (0.52-1.04) mg/dL Est GFR (CKD-EPI)AfAm >90 (>60 ml/min/1.73 sqM) Est GFR (CKD-EPI)NonAf >90 (>60 ml/min/1.73 sqM) Glucose 92 (74-99) mg/dL Calcium 9.4 (8.4-10.2) mg/dL Magnesium 1.9 (1.6-2.3) mg/dL Total Bilirubin 0.4 (0.2-1.3) mg/dL AST 21 (14-36) U/L ALT 28 (4-34) U/L Alkaline Phosphatase 69 (38-126) U/L Troponin I <0.012 (0.000-0.034) ng/mL Total Protein 7.5 (6.3-8.2) g/dL Albumin 4.1 (3.5-5.0) g/dL Urine Color Urine Appearance (Clear) Urine pH (5.0-8.0) Ur Specific [place] (1.001-1.035) Urine Protein (Negative) Urine Glucose (UA) (Negative) Urine Ketones (Negative) Urine Blood (Negative) Urine Nitrite (Negative) Urine Bilirubin (Negative) Urine Urobilinogen (<2.0) mg/dL Ur Leukocyte Esterase (Negative) Urine HCG, Qual Not Detected (Not Detectd) Urine Opiates Screen (NotDetected) Ur Oxycodone Screen (NotDetected) Urine Methadone Screen (NotDetected) Ur Barbiturates Screen (NotDetected) U Tricyclic Antidepress (NotDetected) Ur Phencyclidine Scrn (NotDetected) Ur Amphetamines Screen (NotDetected) U Methamphetamines Scrn (NotDetected) U Benzodiazepines Scrn (NotDetected) Urine Cocaine Screen (NotDetected) U Marijuana (THC) Screen (NotDetected) - Radiology Data Radiology results: report reviewed, image reviewed Disposition Clinical Impression: Palpitations Disposition: HOME SELF-CARE Instructions (If sedation given, give patient instructions): Heart Palpitations (ED) Additional Instructions: Return to the emergency department with any new, worsening, or concerning symptoms. Follow up with your primary care provider in 1-2 days and discuss a Holter monitor and any additional testing to see if that would be appropriate. Is patient prescribed a controlled substance at d/c from ED?: No Referrals: Terry France MD [Primary Care Provider] - 1-2 days Time of Disposition: 10:36
[2024-03-11] MEDS: SODIUM CHLORIDE 0.9% 1,000 ML IV STA (08:50)
[2024-03-11 09:05] LABS: Basophils # (A) 0.1 k/uL (0-0.2); Basophils % (A) 1 %; Eosinophils # (A) 0.2 k/uL (0-0.7); Eosinophils % (A) 2 %; HCT 40.5 % (34.0-46.0); HGB 13.2 gm/dL (11.4-16.0); Lymphocytes % (A) 21 %; MCH 26.5 pg (25.0-35.0); MCHC 32.5 g/dL (31.0-37.0); MCV 81.6 fL (80.0-100.0); Mean Platelet Volume 7.2; Monocytes # (A) 0.3 k/uL (0-1.0); Monocytes % (A) 4 %; Neutrophils # (A) 6.9 k/uL (1.3-7.7); Neutrophils % (A) 72 %; Platelet Count 359 k/uL (150-450); RBC 4.96 m/uL (3.80-5.40); RDW 12.9 % (11.5-15.5); WBC 9.7 k/uL (4.0-11.0)
[2024-03-11 09:10] LABS: Appearance,Urine Clear (Clear); Bilirubin,Urine Negative (Negative); Blood,Urine Negative (Negative); Color,Urine Light Yellow; Glucose,Urine (UA) Negative (Negative); Ketones,Urine Negative (Negative); Leukocyte Esterase,Urine Negative (Negative); Nitrite,Urine Negative (Negative); PH, Urine 5.5 (5.0-8.0); Protein,Urine Negative (Negative); Specific Gravity,Urine 1.021 (1.001-1.035); Urobilinogen,Urine <2.0 mg/dL (<2.0)
[2024-03-11 09:24] LABS: INR 0.9 (<1.2); Partial Thromboplastin Time 27.8 sec (22.0-30.0)
[2024-03-11 09:26] LABS: ALT 28 U/L (4-34); AST 21 U/L (14-36); African American GFR (CKD) >90 (>60 ml/min/1.73 sqM); Albumin 4.1 g/dL (3.5-5.0); Alkaline Phosphatase 69 U/L (38-126); Anion Gap 8 mmol/L; Blood Urea Nitrogen 10 mg/dL (7-17); Calcium 9.4 mg/dL (8.4-10.2); Carbon Dioxide 20 mmol/L (22-30); Chloride 109 mmol/L (98-107); Glucose 92 mg/dL (74-99); Magnesium 1.9 mg/dL (1.6-2.3); Non-African American GFR(CKD) >90 (>60 ml/min/1.73 sqM); Potassium 4.3 mmol/L (3.5-5.1); Sodium 137 mmol/L (137-145); Total Bilirubin 0.4 mg/dL (0.2-1.3); Total Protein 7.5 g/dL (6.3-8.2)
[2024-03-11 09:35] LABS: Amphetamine Screen,Urine Not Detected (NotDetected); Barbiturate Screen,Urine Not Detected (NotDetected); Benzodiazepines Screen,Urine Not Detected (NotDetected); Cocaine Screen,Urine Not Detected (NotDetected); Methadone Screen, Urine Not Detected (NotDetected); Opiate Screen,Urine Not Detected (NotDetected); Oxycodone Screen, Urine Not Detected (NotDetected); Phencyclidine Screen,Urine Not Detected (NotDetected); Tricyclic Antidepressant,Urine Not Detected (NotDetected); Urn Cannabinoid Scrn Not Detected (NotDetected)
--- NOTE | 2024-03-11 09:43 | XR ---
EXAMINATION TYPE: XR chest 2V DATE OF EXAM: 03/11/2024 9:07 AM COMPARISON: None CLINICAL INDICATION: Female, 18 years old with history of dysrhythmia; [facility] TECHNIQUE: XR chest 2V Frontal and lateral views of the chest. FINDINGS: Lungs/Pleura: There is no evidence of pleural effusion, focal consolidation, or pneumothorax. Pulmonary vascularity: Unremarkable. Heart/mediastinum: Cardiomediastinal silhouette is unremarkable. Musculoskeletal: No acute osseous pathology. IMPRESSION: No acute cardiopulmonary disease/process. [facility], , 03/11/2024 9:41 AM
--- NOTE | 2024-03-11 10:16 | CT ---
EXAMINATION TYPE: CT chest angio for PE DATE OF EXAM: 03/11/2024 COMPARISON: None CLINICAL INDICATION: Female, 18 years old with history of Palpitations, ADITI; PHH, Palpitations, ADITI, SOB or PAIN TECHNIQUE: Ct angiogram of the chest performed according to department protocol and following nonionic IV contra st. Images were generated and reviewed. CT DLP: 530.[address] CTDI: mGy Automated exposure control for dose reduction was used. FINDINGS: LUNGS: The lungs are grossly clear, there is no concerning parenchymal mass or nodule identified. T here is no pleural effusion or pneumothorax seen. The tracheobronchial tree is patent. MEDIASTINUM: There is satisfactory enhancement of the pulmonary artery and its branches, there is no CT evidence for pulmonary embolism. There are no greater than 1 cm hilar or mediastinal lymph nodes. No pericardial effusion is seen. OTHER: No additional significant abnormality is seen. IMPRESSION: 1. No evidence of pulmonary embolism. 2. No acute cardiopulmonary disease. Follow-up recommendations for incidental pulmonary nodules are per [employer] [place] [employer] or [place] [employer]. [facility], , 03/11/2024 10:13 AM
[2024-03-11 10:47] VITALS: BP 131/79; PULSE 87; RESP 18; TEMP 98.1
== END 2024-03-11 10:45 | disposition home or self-care (01) ==
LOC: EC 08:13
DX: R00.2 Palpitations (principal)
CPT/HCPCS: 36415; 93005; 85379; 80053; 83735; 84484; 85025; 85610; 85730; 81003; 81025; 80306; 71046; 71275; 99285; 96360; Q9967

== ENCOUNTER 2024-10-15 09:58 | Inpatient (IN) | payer BC ==
--- NOTE | 2024-10-15 11:02 | ED ---
General Adult HPI - General Chief complaint: Psychiatric Symptoms Stated complaint: SI Time Seen by Provider: 10/15/24 10:28 Source: patient, family Mode of arrival: ambulatory - History of Present Illness Initial comments: Dictation was produced using [email or web address] dictation software. please excuse any grammatical, word or spelling errors. Chief Complaint: 19-year-old female depression History of Present Illness: Patient 19-year-old female presents with depression. States that she does not feel like she does not want to exist anymore. She did suffer some superficial cuts to her right upper thigh that were self-inflicted. Denies any homicidal ideation. No visual auditory hallucinations. The ROS documented in this emergency department record has been reviewed and confirmed by me. Those systems with pertinent positive or negative responses have been documented in the HPI. All other systems are other negative and/or noncontributory. - Related Data Home Medications Medication Instructions Recorded Confirmed norethindrone-e.estradioL-iron 1 tab PO DAILY 03/11/24 10/15/24 [Aurovela Fe 1-20 Tablet] Ferrous Sulfate [Iron (65 MG 325 mg PO DAILY 10/15/24 10/15/24 Elemental)] Mha-Ftcf-Trhty Acid 1 cap PO DAILY 10/15/24 10/15/24 [-U Capsule (formulary)] Previous Rx's Medication Instructions Recorded Escitalopram [Lexapro] 20 mg PO DAILY 30 Days #30 tab 10/19/24 Ibuprofen [Motrin] 600 mg PO Q6HR PRN tab 10/19/24 hydrOXYzine HCL [Atarax] 25 mg PO DAILY PRN 30 Days #30 tab 10/19/24 Allergies Allergy/AdvReac Type Severity Reaction Status Date / Time No Known Allergies Allergy Verified 10/15/24 14:07 Review of Systems ROS Statement: Those systems with pertinent positive or pertinent negative responses have been documented in the HPI. ROS Other: All systems not noted in ROS Statement are negative. Past Medical History Past Medical History: No Reported History Additional Past Medical History / Comment(s): anemia, hypoglycemia History of Any Multi-Drug Resistant Organisms: None Reported Past Surgical History: Orthopedic Surgery Additional Past Surgical History / Comment(s): dental work, right arm surgery after fx, rt ankle Past Psychological History: Anxiety, Depression Smoking Status: Never smoker Past Alcohol Use History: Rare Past Drug Use History: Marijuana General Exam - General Exam Comments Initial Comments: General: Well-appearing, nontoxic, no acute distress. Head: Normocephalic, atraumatic Eyes: PERRLA, EOMI ENT: Airway patent Chest: Nonlabored breathing Skin: No visual rash, normal skin tone, multiple very superficial abrasions to the bilateral upper extremities and right anterior thigh Neuro: Alert and oriented 3 Musculoskeletal: No gross abnormalities Course Vital Signs 10/15/24 10:16 Temperature 98.7 F Pulse Rate 76 Respiratory 16 Rate Blood Pressure 137/82 O2 Sat by Pulse 98 Oximetry Medical Decision Making - Medical Decision Making Was pt. sent in by a medical professional or institution (, PA, OIL WELL CABLE TOOL OPERATOR, urgent care, hospital, or care home...) When possible be specific @ -No Did you speak to anyone other than the patient for history (EMS, parent, family, police, friend...)? What history was obtained from this source @ -No Did you review nursing and triage notes (agree or disagree)? Why? @ -I reviewed and agree with nursing and triage notes Were old charts reviewed (outside hosp., previous admission, EMS record, old EKG, old radiological studies, urgent care reports/EKG's, care home records)? Report findings @ -No old charts were reviewed Differential Diagnosis (chest pain, altered mental status, abdominal pain women, abdominal pain men, vaginal bleeding, musculoskeletal, weakness, fever, dyspnea, syncope, headache, dizziness, GI bleed, back pain, seizure, CVA, palpatations, mental health)? @ -Differential Mental Health: Depression, anxiety, bipolar, psychosis, schizophrenia, borderline personality, situational depression, adjustment disorder, behavioral disorder, brain tumor, malingering, substance abuse, encephalopathy, medication reaction, dementia, hypothyroidism, degenerative neurologic disorder, lupus.... This is not meant to be all-inclusive list EKG interpreted by me (3pts min.). @ -None done X-rays interpreted by me (1pt min.). @ -None done CT interpreted by me (1pt min.). @ -None done U/S interpreted by me (1pt. min.). @ -None done What testing was considered but not performed or refused? (CT, X-rays, U/S, labs)? Why? @ -None What meds were considered but not given or refused? Why? @ -None Was smoking cessation discussed for >3mins.? @ -No Were there social determinants of health that impacted care today? How? (Homelessness, low income, unemployed, alcoholism, drug addiction, transportation, low edu. Level, literacy, decrease access to med. care, group home, rehab)? @ -No Was there de-escalation of care discussed even if they declined (Discuss DNR or withdrawal of care, Hospice)? DNR status @ -No What co-morbidities impacted this encounter? (DM, HTN, Smoking, COPD, CAD, Cancer, CVA, ARF, Chemo, Hep., AIDS, mental health diagnosis, sleep apnea, morbid obesity)? @ -None Was patient admitted / discharged? Hospital course, mention meds given and route, prescriptions, significant lab abnormalities, going to OR and other pertinent info. @ -19-year-old female male with depression suicidal ideation suicidal behavior. Vital signs stable. Self inflicted injury is an abrasion. Patient medically cleared for EPS evaluation Patient admitted to inpatient psych Did you discuss the management of the patient with other professionals (professionals i.e. , PA, OIL WELL CABLE TOOL OPERATOR, lab, RT, psych nurse, social worker clinical, early childhood specialist, teacher, chief strategy officer, case mgr)? Give summary @ -No Was critical care preformed (if so, how long)? @ -No Undiagnosed new problem with uncertain prognosis? @ -No Drug Therapy requiring intensive monitoring for toxicity (Heparin, Nitro, Insulin, Cardizem)? @ -No Were any procedures done? @ -No Diagnosis/symptom? Acute, or Chronic, or Acute on Chronic? Uncomplicated (without systemic symptoms) or Complicated (systemic symptoms)? @ -Suicidal behavior Side effects of treatment? @ -No Exacerbation, Progression, or Severe Exacerbation? @ -No Poses a threat to life or bodily function? How? (Chest pain, [place], MA, pneumonia, PE, COPD, DKA, ARF, appy, cholecystitis, CVA, Diverticulitis, Homicidal, Suicidal, threat to staff... and all critical care pts) @ -yes - Lab Data Result diagrams: 10/16/24 07:33 10/16/24 07:33 Lab Results 10/15/24 Range/Units 13:57 Influenza Type A (PCR) Not Detected (Not Detectd) Influenza Type B (PCR) Not Detected (Not Detectd) RSV (PCR) Not Detected (Not Detectd) SARS-CoV-2 (PCR) Not Detected (Not Detectd) Disposition Clinical Impression: Depression Disposition: TRANSFER TO PSYCH HOSP/UNIT Condition: Stable
[2024-10-15 14:53] LABS: Influenza A Not Detected (Not Detectd); Influenza B Not Detected (Not Detectd); RSV Not Detected (Not Detectd)
[2024-10-15] MEDS: ONDANSETRON ODT 4 MG TAB PO STA (15:22)
[2024-10-15] MEDS: DIPH,PERTUS(ACELL)TETVAC-LF 0.5 ML VIAL IM ONE (15:44)
[2024-10-15] MEDS ORDERED: MAG HYDROX/AL HYDROX/SIMETH 355 ML BOTTLE PO PRN (17:29)
[2024-10-15] MEDS ORDERED: OLANZapine 5 MG TAB PO PRN (17:29)
[2024-10-15 21:03] LABS: Appearance,Urine Clear (Clear); Bilirubin,Urine Negative (Negative); Blood,Urine Trace (Negative); Color,Urine Colorless; Glucose,Urine (UA) Negative (Negative); Ketones,Urine Negative (Negative); Leukocyte Esterase,Urine Negative (Negative); Nitrite,Urine Negative (Negative); PH, Urine 6.5 (5.0-8.0); Protein,Urine Negative (Negative); RBC,Urine <1 /hpf (0-5); Specific Gravity,Urine 1.006 (1.001-1.035); Squamous Epithelial Cell,Urine <1 /hpf (0-4); Urobilinogen,Urine <2.0 mg/dL (<2.0); WBC,Urine 1 /hpf (0-5)
[2024-10-15] MEDS: MELATONIN 3 MG TABLET PO STA (21:48)
[2024-10-16 02:41] LABS: Urine Alcohol Negative (Negative)
[2024-10-16 02:42] LABS: Urine Barbiturate Negative (Negative); Urine Cocaine Negative (Negative); Urine Methadone Negative (Negative); Urine Opiates Negative (Negative); Urine Phencyclidine Negative (Negative)
[2024-10-16] MEDS: IBUPROFEN 600 MG TAB PO PRN (06:29)
[2024-10-16 08:13] LABS: Basophils # (A) 0.05 10*3/uL (0.00-0.10); Basophils % (A) 0.5 %; Eosinophils # (A) 0.03 10*3/uL (0.04-0.35); Eosinophils % (A) 0.3 %; HCT 40.8 % (37.2-46.3); HGB 13.4 g/dL (12.0-15.0); Lymphocytes # (A) 2.18 10*3/uL (0.90-5.00); Lymphocytes % (A) 21.4 %; MCH 26.6 pg (27.0-32.0); MCHC 32.8 g/dL (32.0-37.0); MCV 81.1 fL (80.0-97.0); Mean Platelet Volume 10.5 fL (9.5-12.2); Monocytes % (A) 4.9 %; Neutrophils # (A) 7.39 10*3/uL (1.80-7.70); Neutrophils % (A) 72.7 %; Platelet Count 375 10*3/uL (140-440); RBC 5.03 10*6/uL (4.10-5.20); RDW 12.3 % (11.5-14.5); WBC 10.17 10*3/uL (4.50-10.00)
[2024-10-16 08:26] LABS: ALT 21 U/L (4-34); AST 22 U/L (14-36); African American GFR (CKD) >90 (>60 ml/min/1.73 sqM); Albumin 4.6 g/dL (3.5-5.0); Alkaline Phosphatase 68 U/L (38-126); Anion Gap 11 mmol/L; Bilirubin, Delta 0.2 mg/dL (0.0-0.2); Bilirubin,Unconjugated 0.4 mg/dL (0.0-1.1); Blood Urea Nitrogen 10 mg/dL (7-17); Calcium 9.7 mg/dL (8.4-10.2); Carbon Dioxide 21 mmol/L (22-30); Chloride 106 mmol/L (98-107); Glucose 94 mg/dL (74-99); Non-African American GFR(CKD) >90 (>60 ml/min/1.73 sqM); Potassium 4.1 mmol/L (3.5-5.1); Sodium 138 mmol/L (137-145); Total Bilirubin 0.6 mg/dL (0.2-1.3); Total Protein 7.9 g/dL (6.3-8.2)
[2024-10-16] MEDS: ESCITALOPRAM 10 MG TAB PO SCH (08:32)
--- NOTE | 2024-10-16 09:12 | P.HP ---
Psychiatric H&P - . H&P Date: 10/16/24 History & Physical: Allergies Allergy/AdvReac Type Severity Reaction Status Date / Time No Known Allergies Allergy Verified 10/15/24 14:07 Vital Signs Temp 97.7 F 10/15/24 21:00 Pulse 109 H 10/15/24 21:00 Resp 16 10/15/24 21:00 BP 120/86 10/15/24 21:00 Pulse Ox 100 10/15/24 21:00 FiO2 Intake & Output 10/15/24 10/16/24 10/16/24 18:59 06:59 18:59 Weight 115.666 kg Laboratory Last Values Urine Color Colorless 10/15/24 20:50 Urine Appearance Clear (Clear) 10/15/24 20:50 Urine pH 6.5 (5.0-8.0) 10/15/24 20:50 Ur Specific Herreid 1.006 (1.001-1.035) 10/15/24 20:50 Urine Protein Negative (Negative) 10/15/24 20:50 Urine Glucose (UA) Negative (Negative) 10/15/24 20:50 Urine Ketones Negative (Negative) 10/15/24 20:50 Urine Blood Trace (Negative) H 10/15/24 20:50 Urine Nitrite Negative (Negative) 10/15/24 20:50 Urine Bilirubin Negative (Negative) 10/15/24 20:50 Urine Urobilinogen <2.0 mg/dL (<2.0) 10/15/24 20:50 Ur Leukocyte Esterase Negative (Negative) 10/15/24 20:50 Urine RBC <1 /hpf (0-5) 10/15/24 20:50 Urine WBC 1 /hpf (0-5) 10/15/24 20:50 Ur Squamous Epith Cells <1 /hpf (0-4) 10/15/24 20:50 Urine HCG, Qual Not Detected (Not Detectd) 10/15/24 20:50 Urine Opiates Screen Negative (Negative) 10/15/24 20:50 Urine Methadone Screen Negative (Negative) 10/15/24 20:50 Ur Propoxyphene Screen Negative (Negative) 10/15/24 20:50 Urine Barbiturates Negative (Negative) 10/15/24 20:50 Ur Phencyclidine Scrn Negative (Negative) 10/15/24 20:50 Ur Amphetamine Screen Negative (Negative) 10/15/24 20:50 U Benzodiazepines Scrn Negative (Negative) 10/15/24 20:50 Urine Cocaine Screen Negative (Negative) 10/15/24 20:50 U Cannabinoids Screen Positive (Negative) A 10/15/24 20:50 Urine Alcohol Negative (Negative) 10/15/24 20:50 U Creatinine Drug Scrn 47.3 mg/dL (>=20.0) 10/15/24 20:50 Influenza Type A (PCR) Not Detected (Not Detectd) 10/15/24 13:57 Influenza Type B (PCR) Not Detected (Not Detectd) 10/15/24 13:57 RSV (PCR) Not Detected (Not Detectd) 10/15/24 13:57 SARS-CoV-2 (PCR) Not Detected (Not Detectd) 10/15/24 13:57 Dictation was produced using [employer] dictation software. Please excuse any grammatical, word or spelling errors. IDENTIFYING DATA: Patient is a 19 years old female with psychiatric history of depression, presents for suicidal thoughts and self-harm behavior she has superficial cuts on her right upper thigh that was self-inflicted. HPI: Patient presented to the hospital for suicidal ideation and self-harm beh avior, she has superficial cuts on her upper thigh. Per report patient has been under a lot of stress lately. Per intake she is currently living with her boyfriend and she has been struggling at work, she made some comments about being tired of her stressors however denied any suicidal or homicidal thoughts or behavior, intention or plan, reported that she is looking forward to be with her boyfriend who is very supportive. Upon evaluation in the unit the patient was in her room, agreed to speak with the senior grant writer in the office, she states that she has been under stress at work, and at home, she had a mental breakdown due to living and financial stress. She states that on her coworkers were missing with her, and she was trying to ignore them, however she was overwhelmed. States that she is struggle sometime with being exist. She was emotional when she went home and she continued to have those thoughts of being non exist, states that she tried to cut herself to feel better however she did not feel better, states that she used a razer to scratch her thigh. She admitted to feeling down, sad and depressed less than one day a week, reported that Lexapro has been helping. She rated depression at 2/10. Sleep is good, heavy sleeper. Appetite is good. She denied any current SI/HI or self harm. She denied any previous history of suicide. States that she used to cut once as teenager. She reported feeling hopeless, helpless, worthless at times however her boyfriend has been supportive, reported that she would like to have a therapist. She reported to be anxious around new people, crowd of people, financial and living situation, she rated anxiety at 3/10. She denied any manic or hypomanic symptoms. She denied any current AVH, paranoia or delusions. She states that her boyfriend is supportive and is trying to make some arrangement to make her feel better. States that she will plan to move department at work to avoid conflicts with coworker. She states that she is worried about her student loan. Patient admits to using cannabis once a day before sleep. Denied tobacco, alcohol, or any other substance. PAST PSYCHIATRIC HISTORY: - Inpatient Hospitalizations: denies - Outpatient Care: denies - Current Psychotropics: Lexapro 10 mg po daily - Prior Psychotropics/Therapy: Zoloft (gave her suicidal thoughts) - Prior Psychiatric dx: depression, anxiety - Suicidal Attempts: denies - Self Harm: once as a teenager - Trauma History: admitted to emotional trauma related to her mother, grand mother last March PMH: as per ER note Past Medical History: No Reported History Additional Past Medical History / Comment(s): anemia, hypoglycemia History of Any Multi-Drug Resistant Organisms: None Reported Past Surgical History: Orthopedic Surgery Additional Past Surgical History / Comment(s): dental work, right arm surgery after fx, rt ankle Past Psychological History: Anxiety, Depression Smoking Status: Never smoker Past Alcohol Use History: Rare Past Drug Use History: Marijuana ALLERGIES: as per EMR CHEMICAL DEPENDENCY HISTORY: as per HPI FAMILY PSYCHIATRIC/SUBSTANCE USE HISTORY: father has anxiety, both half sisters has anxiety and depression SOCIAL HISTORY: Patient was born and raised in [place], single, has a fiance for almost 4 yrs, lives with him, she has college associates, denied any legal issues. She work at [employer] for 9 months. MENTAL STATUS EXAM: General Appearance: Patient appears to be stated age is alert, directable, and attempts to cooperate. Patient appears to have fair hygiene and grooming. She is obese. Behavior: Patient is seated without any agitated behavior. Speech: Patient's speech is fluent and nonpressured. Mood/Affect: Patient reports their mood is " fine", affect is congruent and constricted. Suicidality/Homicidality: Patient denies having any homicidal ideation intent or plan. Denies any suicidal ideations intent or plan Perceptions: Patient denies any visual hallucinations and denies any auditory hallucinations Though content/process: There is no evidence of any delusional thought content and thought process is linear and goal-directed. Memory and concentration: AOX3, grossly intact for the purposes of this session. Can spell "WORLD" backwards Judgment and insight: poor STRENGTHS/WEAKNESSES: strength is that patient is resilient. Weakness is that patient has poor judgment and is impulsive INTELLECT: average IMPRESSIONS: Major depressive disorder, recurrent, moderate Generalized anxiety disorder Cannabis use PLAN: -Patient is admitted under voluntary status to MHU for stabilization of psychiatric symptoms and safety. Patient has signed adult voluntary form and medication consent and is placed in patient's chart. The patient signed mental [facility] release of responsibility for discharge (72 hours assessment) upon admission, reported she is not in a glasgow to leave and willing to take medication and follow our recommendation. -Medications : Continue Lexapro 10 mg p.o. daily, plan to increase to 15 mg tomorrow. -Hydroxyzine, Zyprexa PRN for agitation/aggression -Patient was counselled on substance abuse including cannabis and desired to cut back on use -Patient was informed of the risks, benefits and side effects of the medication and patient verbally consented to taking the medications. Patient signed med consent form and was placed in chart. -Internal Medicine consult to perform medical evaluation and physical. -NRT - not needed as patient does not smoke -SW on board for discharge planning. Encourage patient to participate in groups to work on coping skills. 10/16/24 08:12 10/16/24 08:28
[2024-10-16 13:23] LABS: Chol/HDL Ratio 3.46 Ratio; LDL Cholesterol,Calculated 85.9 mg/dL (0.0-131.0)
[2024-10-16] MEDS: MAGNESIUM HYDROXIDE 2,400 MG/30 ML CUP PO PRN (20:51)
[2024-10-17] MEDS: ESCITALOPRAM 10 MG TAB PO SCH (07:48)
--- NOTE | 2024-10-17 10:01 | P.PN ---
Progress Note - Text Progress Note Date: 10/17/24 Dictation was produced using [employer] dictation software. Please excuse any grammatical, word or spelling errors. Interval history: Patient was seen in her room and was directable and agreeable to speak with the insurance writer in the office for psychiatric follow-up. The patient states that she is feeling "very good," states that she is feeling better being around many people has been helping, states that she has been isolated for some time, and she enjoys attending groups and being around people. States that she slept well last night, and feels rested, it is reported that she slept more than 6 hours last night, admitted to good appetite. States that depression and anxiety are at the low side, she rated both at 0/10. States that she is very calm, and is feeling safe. She denied any current SI/HI or self harm. Denied any current AVH. She has been compliant with her medication, she denied any side effects. She states that her fiance visited yesterday, and she called her family and reported that they all are supportive. States that her fiance is arranging for the living situation and they will be taking the 2nd level just for them, which she is excited about. MENTAL STATUS EXAM: General Appearance: Patient appears to be stated age is alert, directable, and attempts to cooperate. Patient appears to have fair hygiene and grooming. She is obese. Behavior: Patient is seated without any agitated behavior. Speech: Patient's speech is fluent and nonpressured. Mood/Affect: Patient reports their mood is "better", affect is congruent and constricted. Suicidality/Homicidality: Patient denies having any homicidal ideation intent or plan. Denies any suicidal ideations intent or plan Perceptions: Patient denies any visual hallucinations and denies any auditory hallucinations Though content/process: There is no evidence of any delusional thought content and thought process is linear and goal-directed. Memory and concentration: AOX3, grossly intact for the purposes of this session. Can spell "WORLD" backwards Judgment and insight: improving mildly IMPRESSIONS: Major depressive disorder, recurrent, moderate Generalized anxiety disorder Cannabis use Assessment/Plan: - Patient continues to meet criteria for inpatient psychiatric admission for symptom stabilization and safety. Patient is admitted under voluntary status to MHU for stabilization of psychiatric symptoms and safety. Patient has signed adult voluntary form and medication consent and is placed in patient's chart. The patient signed mental health release of responsibility for discharge (72 hours assessment) upon admission, reported she is not in a glasgow to leave and willing to take medication and follow our recommendation. Patient is willing to follow-up with outpatient psychiatrist and therapist and would like for this appointment to be made prior to discharge. -Medications : - Increase Lexapro to 15 mg p.o. daily to address patient depression and anxiety -Hydroxyzine, Zyprexa PRN for agitation/aggression -Patient was informed of the risks, benefits and side effects of the medication and patient verbally consented to taking the medications. Patient signed med consent form and was placed in chart. -SW on board for discharge planning. Encourage patient to participate in groups to work on coping skills.
[2024-10-17] MEDS: ACETAMINOPHEN TAB 325 MG TAB PO PRN (21:31)
[2024-10-17] MEDS: hydrOXYzine HCL 25 MG TAB PO PRN (21:47)
--- NOTE | 2024-10-18 11:24 | P.PN ---
Progress Note - Text Progress Note Date: 10/18/24 Interval History: Patient was seen today for psychiatric follow up. Patient was sitting in the lounge today the patient is. She was agreeable to speak to the office today. She briefly explained describing things as a letter, the hospital. That she was feeling overwhelmed and endorsing increasing stress and depression. She states that she has been doing fairly well on the 15 mg of Lexapro, was able to have it increased to 20 mg starting today. She claims that her mood and anxiety for Mo nday. Since yesterday, she has been trying to be more active on the unit. Appears to be more future oriented. Claims that she slept about 8 hours last night. Denies any issues with appetite. Denies any side effects of the medications. Denies any auditory or visual hallucinations denies any suicidal or homicidal ideations intent or plan MENTAL STATUS EXAM: General Appearance: Patient appears to be stated age is alert, directable, and attempts to cooperate. Patient appears to have fair hygiene and grooming. Behavior: Patient is seated without any agitated behavior. attempts to cooperate . Speech: Patient's speech is fluent and nonpressured. Mood/Affect: Patient reports their mood is "a bit better", affect is congruent Suicidality/Homicidality: Patient denies having any homicidal ideation intent or plan. Denies any suicidal ideations intent or plan Perceptions: Patient denies any visual hallucinations and denies any auditory hallucinations Though content/process: There is no evidence of any delusional thought content and thought process is linear and goal-directed. Memory and concentration: AOX3, grossly intact for the purposes of this session. Can spell "WORLD" backwards Judgment and insight: improving mildly IMPRESSIONS: Major depressive disorder, recurrent, moderate Generalized anxiety disorder Cannabis use Assessment/Plan: - Patient continues to meet criteria for inpatient psychiatric admission for symptom stabilization and safety. Patient is admitted under voluntary status to MHU for stabilization of psychiatric symptoms and safety. Patient has signed adult voluntary form and medication consent and is placed in patient's chart. Patient has also signed AGAINST MEDICAL ADVICE, which will be up for review tomorrow evening. -Medications : - Increase Lexapro 20 mg p.o. daily to address patient depression and anxiety -Hydroxyzine, Zyprexa PRN for agitation/aggression - NRT - none - Continued to participate in milieu, encouraged medication compliance. Hopeful for discharge tomorrow back home.
[2024-10-18] MEDS: ESCITALOPRAM 5 MG TAB PO STA (11:29)
--- NOTE | 2024-10-18 17:04 | P.MDCNMH ---
History of Present Illness H&P Date: 10/18/24 History of Presenting Illness: Patient is a 19-year-old female with a past medical history of iron deficiency anemia, depression, anxiety, and daily cannabis use. She is currently admitted to inpatient psychiatric unit secondary to reports of depression and stated she felt like she did not want to exist anymore. We were consulted for medical evaluation and medical H&P. Patient seen and fully evaluated in mental health unit. She was ambulatory with a steady gait. Patient calm and cooperative throughout examination. She reports that she has been having chronic pain in right knee for the past 3 to 6 months and states sometimes her knee just gives out on her and she has pain intermittently. She currently denies having this pain at the moment and denies any difficulty with ambulation at this time. Patient admits to daily cannabis use, reports mostly taking edibles nightly for sleep. She denies smoking reports occasional alcohol use drinking socially. Other than marijuana, patient denies any drug use. She reports she is currently hospitalized in mental health unit secondary to reports of severe depression and anxiety and felt as though she was having a mental break stating she did not want to exist in this life anymore. Patient does report feeling slightly better since admission to the mental health unit. She denies having any headache, lightheadedness, dizziness, shortness of breath or cough, palpitations,nausea, vomiting, or experiencing any difficulties with urinary or bowel function. She denies having any visual, tactile, or auditory hallucinations. Patient denies having any previous history of self-injurious behaviors. She had multiple superficial scratches over both arms, patient states the scratches are from a kitten that e brought home last week. Labs reviewed. CBC showing mild leukocytosis with WBC count of 10.17. BMP showing mild hypocarbia with bicarb of 21 otherwise normal findings. Blood glucose 94. Hemoglobin A1c was 5.5%. Liver profile unremarkable. Lipid profile normal findings. TSH 3.430. Urinalysis negative for infection. Urine hCG negative. Urine drug screen positive for cannabis. Influenza A, influenza B, RSV, and COVID PCR negative. Vital signs reviewed. Blood pressure 138/64, heart rate 111, respiratory rate 16, temp 97.8 F, and SpO2 of 99% on room air. Review of systems: Pertinent positives and negatives as discussed in HPI, a complete review of systems was performed and all other systems are negative. Physical exam: Vital signs reviewed and stable. General: Nontoxic, no distress and appears stated age. Derm: Skin warm and dry, normal coloration for ethnicity. Multiple superficial scratches on bilateral upper extremities. Head: Atraumatic, normocephalic and symmetric. Eyes: EOM's intact, no lid lag, and anicteric sclera Mouth: no lip lesions, mucus membranes moist Cardiovascular: regular rate and rhythm with normal S1S2, no murmur, positive posterior tibial pulses bilaterally, and cap refill < 2 seconds. Lungs: Respirations even, regular, and unlabored on room air. Lungs CTA bilaterally, no rhonchi, no rales, no wheezing, and no accessory muscle usage. Abdominal: soft, nontender to palpation, no guarding, no appreciable organomegaly Ext: ROM intact. No gross muscle atrophy, no edema, no contractures Neuro: Speech clear, face symmetrical and CN II-XII grossly intact with no noted focal neuro deficits Psych: Alert and oriented to person, place, time, and situation. Appropriate and pleasant affect. Assessment and Plan of Care: Iron deficiency anemia Continue ferrous sulfate 325 mg daily. Hemoglobin currently stable at 13.4. Cannabinoid use disorder Recommend discontinuation of use. Depression with anxiety Hopelessness Maintain safe and supportive care and further management by primary admitting psychiatric team. Data reviewed: As stated above in HPI. Thank you for allowing us to participate in the care of this pleasant patient. Do not hesitate to contact us with questions. Someone can be reached from the [facility] group all hours of the day at [phone] or via [employer]. Patient was seen independently by Nurse Practitioner. This document was prepared using [employer] dictation software. Please allow for errors in nut tightener while rare they do occur. Adarsh Dobbins NP rendered care for this patient independently, reviewed the findings and plan as documented in the note above and agree with plan. I did not physically speak with or examine the patient on this date. Past Medical History Past Medical History: No Reported History Additional Past Medical History / Comment(s): anemia, hypoglycemia History of Any Multi-Drug Resistant Organisms: None Reported Past Surgical History: Orthopedic Surgery Additional Past Surgical History / Comment(s): dental work, right arm surgery after fx, rt ankle fracture with surgical repair Past Psychological History: Anxiety, Depression Smoking Status: Never smoker Past Alcohol Use History: Rare Past Drug Use History: Marijuana Medications and Allergies Home Medications Medication Instructions Recorded Confirmed Type Escitalopram [Lexapro] 10 mg PO DAILY 03/11/24 10/15/24 History norethindrone-e.estradioL-iron 1 tab PO DAILY 03/11/24 10/15/24 History [Aurovela Fe 1-20 Tablet] Ferrous Sulfate [Feosol] 325 mg PO DAILY 10/15/24 10/15/24 History Gzm-Crwb-Fjcie Acid 1 cap PO DAILY 10/15/24 10/15/24 History [-U Capsule (formulary)] Allergies Allergy/AdvReac Type Severity Reaction Status Date / Time No Known Allergies Allergy Verified 10/15/24 14:07 Physical Exam Vitals: Vital Signs Temp Pulse Resp BP Pulse Ox 10/18/24 08:24 97.8 F 111 H 138/64 99 10/17/24 21:00 97.3 F L 90 16 125/85 98 Cranial Nerve Examination - Cranial Nerves Cranial Nerve II- Optic: Intact Cranial Nerve III- Oculomotor: Intact Cranial Nerve IV- Trochlear: Intact Cranial Nerve V- Trigeminal: Intact Cranial Nerve - Abducens: Intact Cranial Nerve VII- Facial: Intact Cranial Nerve VIII- Auditory: Intact Cranial Nerve IX- Glossopharyngeal: Intact Cranial Nerve X- Vagus: Intact Cranial Nerve XI- Accessory: Intact Cranial Nerve XII- Hypoglossal: Intact Results CBC & Chem 7: 10/16/24 07:33 10/16/24 07:33
[2024-10-18 21:03] VITALS: TEMP 97.7
[2024-10-19] MEDS: FERROUS SULFATE 325 MG TAB PO SCH (08:34)
[2024-10-19] MEDS: ESCITALOPRAM 20 MG TAB PO SCH (08:34)
[2024-10-19 08:47] VITALS: BP 115/84; PULSE 89; RESP 20
--- NOTE | 2024-10-19 10:20 | P.DS ---
Providers Date of admission: 10/15/24 15:34 Expected date of discharge: 10/19/24 Attending physician: Dmitry Hernandez MD Consults: 10/17/24 16:02 Consult Physician Routine Consulting Provider: Radha Flores Consult Reason/Comments: H&P and medical follow up Do you want consulting provider notified?: Yes Primary care physician: Jayesh Webster - Discharge Diagnosis(es) (1) Major depressive disorder, recurrent episode Current Visit: Yes Status: Acute Priority: High (2) Generalized anxiety disorder Current Visit: Yes Status: Acute Priority: High (3) Cannabis use disorder Current Visit: Yes Status: Acute Priority: Medium Hospital Course: Admission HPI: Admission note was completed by Dr Garcia "patient is a 19 years old female with psychiatric history of depression, presents for suicidal thoughts and self- harm behavior she has superficial cuts on her right upper thigh that was self- inflicted. Patient presented to the hospital for suicidal ideation and self-harm behavior, she has superficial cuts on her upper thigh. Per report patient has been under a lot of stress lately. Per intake she is currently living with her boyfriend and she has been struggling at work, she made some comments about being tired of her stressors however denied any suicidal or homicidal thoughts or behavior, intention or plan, reported that she is looking forward to be with her boyfriend who is very supportive. Upon evaluation in the unit the patient was in her room, agreed to speak with the marketing writer in the office, she states that she has been under stress at work, and at home, she had a mental breakdown due to living and financial stress. She states that on her coworkers were missing with her, and she was trying to ignore them, however she was overwhelmed. States that she is struggle sometime with being exist. She was emotional when she went home and she continued to have those thoughts of being non exist, states that she tried to cut herself to feel better however she did not feel better, states that she used a razer to scratch her thigh. She admitted to feeling down, sad and depressed less than one day a week, reported that Lexapro has been helping. She rated depression at 2/10. Sleep is good, heavy sleeper. Appetite is good. She denied any current SI/HI or self harm. She denied any previous history of suicide. States that she used to cut once as teenager. She reported feeling hopeless, helpless, worthless at times however her boyfriend has been supportive, reported that she would like to have a therapist. She reported to be anxious around new people, crowd of people, financial and living situation, she rated anxiety at 3/10. She denied any manic or hypomanic symptoms. She denied any current AVH, paranoia or delusions. She states that her boyfriend is supportive and is trying to make some arrangement to make her feel better. States that she will plan to move department at work to avoid conflicts with coworker. She states that she is worried about her student loan. Patient admits to using cannabis once a day before sleep. Denied tobacco, alcohol, or any other substance." Hospital course: Upon admission to the unit patient was directable and agreeable to commence treatment and signed adult voluntary form. Patient did sign AMA shortly after being hospitalized on the unit. Patient was initially depressed, anxious however with time and treatment patient got along well with other patients on the unit and followed unit protocol. Patient was compliant with the medications and denied any side effects throughout hospital course. Patient was started on Lexapro increased to a dose of 20 mg daily for mood/anxiety, Vistaril as needed for anxiety. Patient spoke of her stressors and engaged in therapy both group/activity therapy. Patient was also seen by medical team for history and physical exam. Throughout the course of the hospitalization patient gradually improved with regards to mood, anxiety, sleep and became more future oriented with improved insight and judgment. On the day of discharge patient denied any suicidal or homicidal ideations intent or plan denied any auditory or visual hallucinations. Patient endorsed wanting to live for their health and family. The patient denied any access to guns or weapons. Patient denied any paranoia and did not endorse any delusions. Patient does have a significant history of substance abuse and was counseled on abstaining from all substances including alcohol and marijuana. Patient elected to do outpatient substance use treatment program through their outpatient provider. Patient was also counseled on the medications and need for regular compliance and was encouraged to follow-up with their outpatient appointment for mental health and also for primary care. Prior to discharge a family meeting will be arranged by clinical social work aide to answer any questions and ensure safety upon discharge incuding making sure that guns/weapons are either removed from the home or locked away. Mental status exam: General Appearance: Patient appears to be overweight, wearing glasses, stated age is alert, pleasant, and cooperative. Patient is in no acute distress and has improved hygiene and grooming Behavior: Patient is calmly seated without any agitated behavior. Speech: Patient's speech is fluent and nonpressured. Mood/Affect: Patient reports their mood is "good", affect is congruent and euthymic. Suicidality/Homicidality: Patient denies having any suicidal or homicidal ideation intent or plan. Perceptions: Patient denies any auditory or visual hallucinations. Though content/process: There is no evidence of any delusional thought content and thought process is linear and goal-directed. More future oriented Memory and concentration: AOX3, grossly intact for the purposes of this session. Can spell "WORLD" backwards correctly. Judgment and insight: improved with guarded prognosis Impression: Major depressive disorder, recurrent episode Generalized anxiety disorder Cannabis use disorder Plan: -Continue with discharge today as patient has improved and stabilized psychiatrically and is not currently an imminent threat to themself and/or others. -Continue medications: Vistaril 25 mg daily as needed for anxiety, Lexapro 20 mg daily for mood/anxiety -Patient was counseled on the need for medication compliance and appropriate follow-up at mental health and also primary care for medical issues. Patient verbalized understanding and agreed. -Social work to help coordinate patients discharge today. also to ensure safe home environment that guns/weapons are either removed from the home or locked away. Social work also to arrange for patients follow up appointments for psychiatric care along with follow up with primary care provider. -Patient counseled on abstaining from recreational drugs and marijuana and alcohol. Was informed/educated on the adverse effects on their physical and mental health. Patient verbally agreed and understood. -Patient was instructed to return to the hospital or seek immediate medical care if their psychiatric or medical symptoms do worsen or reoccur. Allergies Allergy/AdvReac Type Severity Reaction Status Date / Time No Known Allergies Allergy Verified 10/15/24 14:07 Laboratory Results WBC 10.17 10*3/uL (4.50-10.00) H 10/16/24 07:33 RBC 5.03 10*6/uL (4.10-5.20) 10/16/24 07:33 Hgb 13.4 g/dL (12.0-15.0) 10/16/24 07:33 Hct 40.8 % (37.2-46.3) 10/16/24 07:33 MCV 81.1 fL (80.0-97.0) 10/16/24 07:33 MCH 26.6 pg (27.0-32.0) L 10/16/24 07:33 MCHC 32.8 g/dL (32.0-37.0) 10/16/24 07:33 Plt Count 375 10*3/uL (140-440) 10/16/24 07:33 MPV 10.5 fL (9.5-12.2) 10/16/24 07:33 Immature Gran % (Auto) 0.2 % 10/16/24 07:33 Neutrophils % 72.7 % 10/16/24 07:33 Lymphocytes % 21.4 % 10/16/24 07:33 Monocytes % 4.9 % 10/16/24 07:33 Eosinophils % 0.3 % 10/16/24 07:33 Basophils % 0.5 % 10/16/24 07:33 Immature Gran # 0.02 10*3/uL (0.00-0.04) 10/16/24 07:33 Neutrophils # 7.39 10*3/uL (1.80-7.70) 10/16/24 07:33 Lymphocytes # 2.18 10*3/uL (0.90-5.00) 10/16/24 07:33 Monocytes # 0.50 10*3/uL (0.20-1.00) 10/16/24 07:33 Eosinophils # 0.03 10*3/uL (0.04-0.35) L 10/16/24 07:33 Basophils # 0.05 10*3/uL (0.00-0.10) 10/16/24 07:33 Sodium 138 mmol/L (137-145) 10/16/24 07:33 Potassium 4.1 mmol/L (3.5-5.1) 10/16/24 07:33 Chloride 106 mmol/L (98-107) 10/16/24 07:33 Carbon Dioxide 21 mmol/L (22-30) L 10/16/24 07:33 Anion Gap 11 mmol/L 10/16/24 07:33 BUN 10 mg/dL (7-17) 10/16/24 07:33 Creatinine 0.55 mg/dL (0.52-1.04) 10/16/24 07:33 Est GFR (CKD-EPI)AfAm >90 (>60 ml/min/1.73 sqM) 10/16/24 07:33 Est GFR (CKD-EPI)NonAf >90 (>60 ml/min/1.73 sqM) 10/16/24 07:33 Glucose 94 mg/dL (74-99) 10/16/24 07:[address] Glu mg/dL 111 mg/dL 10/16/24 07:33 Hemoglobin A1c 5.5 % (<=6.0) 10/16/24 07:33 Calcium 9.7 mg/dL (8.4-10.2) 10/16/24 07:33 Total Bilirubin 0.6 mg/dL (0.2-1.3) 10/16/24 07:33 Conjugated Bilirubin 0.0 mg/dL (0.0-0.3) 10/16/24 07:33 Unconjugated Bilirubin 0.4 mg/dL (0.0-1.1) 10/16/24 07:33 Delta Bilirubin 0.2 mg/dL (0.0-0.2) 10/16/24 07:33 AST 22 U/L (14-36) 10/16/24 07:33 ALT 21 U/L (4-34) 10/16/24 07:33 Alkaline Phosphatase 68 U/L (38-126) 10/16/24 07:33 Total Protein 7.9 g/dL (6.3-8.2) 10/16/24 07:33 Albumin 4.6 g/dL (3.5-5.0) 10/16/24 07:33 Triglycerides 89.50 mg/dL (0.00-149.00) 10/16/24 07:33 Cholesterol 146.00 mg/dL (0.00-200.00) 10/16/24 07:33 LDL Cholesterol, Calc 85.9 mg/dL (0.0-131.0) 10/16/24 07:33 VLDL Cholesterol, Calc 17.90 mg/dL (5.00-40.00) 10/16/24 07:33 HDL Cholesterol 42.20 mg/dL (40.00-60.00) 10/16/24 07:33 Cholesterol/HDL Ratio 3.46 Ratio 10/16/24 07: TSH 3.430 mIU/L (0.465-4.680) 10/16/24 07:33 Urine Color Colorless 10/15/24 20:50 Urine Appearance Clear (Clear) 10/15/24 20:50 Urine pH 6.5 (5.0-8.0) 10/15/24 20:50 Ur Specific [place] 1.006 (1.001-1.035) 10/15/24 20:50 Urine Protein Negative (Negative) 10/15/24 20:50 Urine Glucose (UA) Negative (Negative) 10/15/24 20:50 Urine Ketones Negative (Negative) 10/15/24 20:50 Urine Blood Trace (Negative) H 10/15/24 20:50 Urine Nitrite Negative (Negative) 10/15/24 20:50 Urine Bilirubin Negative (Negative) 10/15/24 20:50 Urine Urobilinogen <2.0 mg/dL (<2.0) 10/15/24 20:50 Ur Leukocyte Esterase Negative (Negative) 10/15/24 20:50 Urine RBC <1 /hpf (0-5) 10/15/24 20:50 Urine WBC 1 /hpf (0-5) 10/15/24 20:50 Ur Squamous Epith Cells <1 /hpf (0-4) 10/15/24 20:50 Urine HCG, Qual Not Detected (Not Detectd) 10/15/24 20:50 Urine Opiates Screen Negative (Negative) 10/15/24 20:50 Urine Methadone Screen Negative (Negative) 10/15/24 20:50 Ur Propoxyphene Screen Negative (Negative) 10/15/24 20:50 Urine Barbiturates Negative (Negative) 10/15/24 20:50 Ur Phencyclidine Scrn Negative (Negative) 10/15/24 20:50 Ur Amphetamine Screen Negative (Negative) 10/15/24 20:50 U Benzodiazepines Scrn Negative (Negative) 10/15/24 20:50 Urine Cocaine Screen Negative (Negative) 10/15/24 20:50 U Cannabinoids Screen Positive (Negative) A 10/15/24 20:50 Urine Alcohol Negative (Negative) 10/15/24 20:50 U Creatinine Drug Scrn 47.3 mg/dL (>=20.0) 10/15/24 20:50 Influenza Type A (PCR) Not Detected (Not Detectd) 10/15/24 13:57 Influenza Type B (PCR) Not Detected (Not Detectd) 10/15/24 13:57 RSV (PCR) Not Detected (Not Detectd) 10/15/24 13:57 SARS-CoV-2 (PCR) Not Detected (Not Detectd) 10/15/24 13:57 Vital Signs Temp 97.7 F 10/19/24 08:47 Pulse 89 10/19/24 08:47 Resp 20 10/19/24 08:47 BP 115/84 10/19/24 08:47 Pulse Ox 98 10/19/24 08:47 FiO2 Patient Condition at Discharge: Stable Plan - Discharge Summary Discharge Rx Participant: Yes New Discharge Prescriptions: New Escitalopram [Lexapro] 20 mg PO DAILY 30 Days #30 tab hydrOXYzine HCL [Atarax] 25 mg PO DAILY PRN 30 Days #30 tab PRN Reason: Anxiety Ibuprofen [Motrin] 600 mg PO Q6HR PRN tab PRN Reason: Moderate Pain (Scale 4 To 6) Continue Moh-Cetc-Ljkop Acid [-U Capsule (formulary)] 1 cap PO DAILY norethindrone-e.estradioL-iron [Aurovela Fe 1-20 Tablet] 1 tab PO DAILY Ferrous Sulfate [Iron (65 MG Elemental)] 325 mg PO DAILY Discontinued Escitalopram [Lexapro] 10 mg PO DAILY Discharge Medication List norethindrone-e.estradioL-iron [Aurovela Fe 1-20 Tablet] 1 tab PO DAILY 03/11/24 [History] Ferrous Sulfate [Iron (65 MG Elemental)] 325 mg PO DAILY 10/15/24 [History] Nes-Neog-Akkfo Acid [-U Capsule (formulary)] 1 cap PO DAILY 10/15/24 [History] Escitalopram [Lexapro] 20 mg PO DAILY 30 Days #30 tab 10/19/24 [Rx] Ibuprofen [Motrin] 600 mg PO Q6HR PRN tab 10/19/24 [Rx] hydrOXYzine HCL [Atarax] 25 mg PO DAILY PRN 30 Days #30 tab 10/19/24 [Rx] Follow up Appointment(s)/Referral(s): Psychological, List [Other] - 10/27/24 12:00 pm (10/27 @ 12:00 with [facility] Please check email for paperwork prior to appt. ) Fco Webster MD [Primary Care Provider] - 1-2 days Patient Instructions/Handouts: Depression (DC) Activity/Diet/Wound Care/Special Instructions: Avoid the use of street drugs and alcohol. Take all medications as prescribed. When you are in need of refills on your medications, please contact your medical provider and/or outpatient psychiatrist/provider to have this done. Please go to your scheduled outpatient appointment for aftercare treatment. If symptoms return or become worse, call the crisis line at and/or go to the nearest emergency room for evaluation. National Suicide Hotline [address] confidentiality statement: "The information contained in this communication, including attachments, is confidential, may be privileged, and is intended only for the use of the named recipient(s). Unauthorized use, disclosure, forwarding or copying is strictly prohibited and may be unlawful. If you have received this communication in error, please notify me IMMEDIATELY at the phone number or pager listed above. Discharge Disposition: HOME SELF-CARE
== END 2024-10-19 12:03 | disposition home or self-care (01) | DRG 885 ==
LOC: EC 09:58 → 3MHU 15:34
PROVIDERS: ADMIT Psychiatry & Neurology Psychiatry; ATTEND Psychiatry & Neurology Psychiatry
DX: F33.1 Major depressive disorder, recurrent, moderate (principal); S71.111A Laceration without foreign body, right thigh, initial encounter; R45.851 Suicidal ideations; F12.10 Cannabis abuse, uncomplicated; F41.1 Generalized anxiety disorder; G89.29 Other chronic pain; D72.829 Elevated white blood cell count, unspecified; M25.561 Pain in right knee; Z79.899 Other long term (current) drug therapy; Z91.52 Personal history of nonsuicidal self-harm; W45.8XXA Other foreign body or object entering through skin, initial encounter; Z71.51 Drug abuse counseling and surveillance of drug abuser
CPT/HCPCS: 80053; 80061; 80306; 81001; 81025; 82075; 82248; 83036; 84443; 85025; 87636; 90471; 90715; 99285